=== PATIENT | male | born 1975 | race Caucasian/White ===

== ENCOUNTER 2019-12-22 12:48 | Emergency (ER) | payer OTHER, SELFPAY ==
[2019-12-22 13:11] VITALS: BP 150/100; PULSE 82; RESP 16; TEMP 37; O2SAT 99
--- NOTE | 2019-12-22 13:37 | ED.SKABFB ---
HPI - Skin/Abscess/Foreign Bdy General Chief complaint: Wound/Laceration Stated complaint: boil under left arm Time Seen by Provider: 12/22/19 13:30 Source: patient and RN notes reviewed Mode of arrival: ambulatory Limitations: no limitations History of Present Illness HPI narrative: Patient presents today complaining of a large boil under his left arm since yesterday. Patient has history of frequent axillary abscesses and has had to have them lanced many times in the past. 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 Currently rates his pain 01/22 and has been taking ibuprofen with some relief. MD complaint: abscess/boil Related Data Allergies Allergy/AdvReac Type Severity Reaction Status Date / Time No Known Allergies Allergy Unverified 09/19/16 11:08 Review of Systems Review of Systems: Narrative: CONSTITUTIONAL: Denies body aches, fever, chills, or sweats. EYES: Denies visual changes, redness, or discharge. ENT: Denies rhinorrhea, congestion, sore throat, or otalgia. CARDIOVASCULAR: Denies chest pain, palpitations, or edema. RESPIRATORY: Denies cough or dyspnea. GASTROINTESTINAL: Denies abdominal pain, nausea, vomiting, or diarrhea. GENITOURINARY: Denies dysuria or hematuria. SKIN: + Boil to left axilla MUSCULOSKELETAL: Denies back pain, joint pain, or myalgia. NEUROLOGIC: Denies headache, numbness, tingling, or weakness. PSYCH: Denies depression or anxiety. [facility] Family History Family History (Updated 02/11/16 @ 23:21 by DOCTOR UNKNOWN) Mother Hypertension Father Patient's father is in good health, Onset Age: 57 Sibling Patient's sister is in good health, Onset Age: 30 Patient's brother is in good health, Onset Age: 39 Social History Social History Alcohol intake: current Comments At time of signature, I have reviewed and agree with nursing past medical, surgical, social and family history unless otherwise noted. Please see nursing chart for further information. There is no relevant family history pertinent to the presenting complaint Exam Narrative: Exam Narrative: GENERAL: Well-appearing, well-nourished, and in no acute distress. HEAD: Normocephalic, atraumatic. EYES: EOMI. No redness or drainage. Conjunctivae normal. ENT: Mucous membranes pink and moist. NECK: Normal AROM. CHEST: No respiratory distress. EXTREMITIES: Normal range of motion. No edema. SKIN: Warm, dry, no rash. Capillary refill normal. Normal skin turgor. Multiple small open sinuses with purulent discharge under the skin in the left axilla. Multiple areas of scarred sinuses as well. Tenderness to the inferior axilla. There is a large amount of redundant skin/scarring noted. Tender to palpation. No fluctuance or induration noted. NEURO: No focal deficits. Alert and oriented x3. Gait steady. PSYCH: Normal affect. No signs of depression or anxiety. Course Vital Signs Vital signs: Vital Signs Temperature 98.6 F 12/22/19 13:11 Pulse Rate 82 12/22/19 13:11 Respiratory Rate 16 12/22/19 13:11 Blood Pressure 150/100 H 12/22/19 13:11 Pulse Oximetry 99 12/22/19 13:11 Temperature 98.6 F 12/22/19 13:11 Pulse Rate 82 12/22/19 13:11 Respiratory Rate 16 12/22/19 13:11 Blood Pressure 150/100 H 12/22/19 13:11 Pulse Oximetry 99 12/22/19 13:11 Reviewed. Pt has been instructed to follow up with his PCP regarding his elevated blood pressure today. MDM - Skin/Abscess/Foreign Bdy Differential Diagnosis Differential diagnosis: Likely abscess of skin or subcutaneous tissue, cellulitis, impetigo, contact dermatitis and other (Hidradenitis suppurativa) Critical Care Time Critical Care Time Critical Care Time: No Discharge Plan Discharge Clinical Impression: Axillary hidradenitis suppurativa Patient Disposition: Home, Self-Care Condition: Stable Instructions: Antibiotic Form, Hidradenitis Suppurativa (ED) Additional Instructions:
== END 2019-12-22 13:41 | disposition home or self-care (01) ==
PROVIDERS: Emergency Provider Nurse Practitioner
DX: L73.2 Hidradenitis suppurativa (principal)
CPT/HCPCS: 99213; G0463